=== PATIENT | female | born 1970 | race Hispanic/Latino ===

== ENCOUNTER 2017-07-19 12:06 | Emergency (ER) | payer OTHER ==
[2017-07-19 12:11] VITALS: RESP 18
[2017-07-19] MEDS ORDERED: Lidocaine 2% Inj (20ml) INFIL STA (12:38)
[2017-07-19] MEDS ORDERED: Lidocaine 2% Inj (20ml) ONE (12:38)
[2017-07-19 14:38] VITALS: BP 149/83; PULSE 84; TEMP 97.9; O2SAT 99
--- NOTE | 2017-07-19 15:25 | C.PDOC ---
History Of Present Illness Olivia Arguello is a 46 y/o female who presents to the ER for evaluation of a laceration to right breast, sustained after a piece of her porcelain toilet broke. This occurred around 10:00 AM today. No numbness or tingling. Tetanus is not up to date. Time Seen by Provider: 07/19/17 12:20 Chief Complaint (Nursing): Abnormal Skin Integrity History Per: Patient History/Exam Limitations: no limitations Onset/Duration Of Symptoms: Hrs (x 2) Current Symptoms Are (Timing): Still Present Past Medical History Reviewed: Historical Data, Nursing Documentation, Vital Signs Vital Signs: Last Vital Signs Temp 97.9 F 07/19/17 14:37 Pulse 84 07/19/17 14:37 Resp 18 07/19/17 14:37 BP 149/83 07/19/17 14:37 Pulse Ox 99 07/19/17 15:32 - Medical History PMH: No Chronic Diseases Surgical History: No Surg Hx Family History: States: Unknown Family Hx - Social History Hx Alcohol Use: No Hx Substance Use: No - Immunization History Hx Tetanus Toxoid Vaccination: No Hx Influenza Vaccination: No Hx Pneumococcal Vaccination: No Review Of Systems Except As Marked, All Systems Reviewed And Found Negative. Skin: Positive for: Lesions (Lac to right breast) Neurological: Negative for: Weakness, Numbness (and tingling) Physical Exam - Physical Exam Appears: Non-toxic, No Acute Distress Skin: Normal Color, Warm, Dry Head: Atraumatic, Normacephalic Eye(s): bilateral: Normal Inspection, PERRL, EOMI Oral Mucosa: Moist Neck: Normal ROM, Supple Chest: Other (Right breast w/ laceration from 12 oclock position to the areolar area, approximately 6 cm. Not involving the nipple. Not actively bleeding.) Cardiovascular: Rhythm Regular, No Murmur Respiratory: Normal Breath Sounds, No Accessory Muscle Use Extremity: Normal ROM, No Deformity Pulses: Left Radial: Normal, Right Radial: Normal Neurological/Psych: Oriented x3, Normal Speech, Normal Motor, Normal Sensation ED Course And Treatment O2 Sat by Pulse Oximetry: 99 (RA) Pulse Ox Interpretation: Normal Laceration - Laceration Repair Laceration, Right Breast Wound Length (In cm): 6 cm Description Of Wound: Linear Wound Cleansed With: Sterile Saline Anesthesia: Lidocaine 2% Wound Examination: Irrigated With Saline Wound Closure: Skin Glue (Dermabond), Suture (absorbable, subcutaneous) Suture Technique And Material Used: Running Wound Complexity: Simple Medical Decision Making Medical Decision Making: Plan: Tetanus vaccine given. Laceration repaired without difficulty. Pt is to follow up in 2 days for wound check with PMD. Advised that sutures are absorbable. Given rx for cephalexin. Disposition Counseled Patient/Family Regarding: Diagnosis, Need For Followup - Disposition Referrals: [facility], [Non-Staff] - Disposition: HOME/ ROUTINE Disposition Time: 14:05 Condition: IMPROVED Additional Instructions: Thank you for letting us take care of you today. If you were prescribed any medication, please fill it and take as directed. It may take several days for your symptoms to resolve. Return to the Emergency Department if your symptoms worsen, do not improve, or if you have any other problems. Please contact your doctor or call one of the physicians/clinics you have been referred to that are listed on the Patient Visit Information form that is included in your discharge packet. Bring any paperwork you were given at discharge with you along with any medications you are taking to your follow up visit. Our treatment cannot replace ongoing medical care by a primary care provider (PCP) outside of the emergency department. Thank you for allowing the [facility] team to be part of your care today. Follow up with your doctor in 2 days for re-evaluation and wound check. Prescriptions: Cephalexin [cephalexin] 500 mg PO Q8 #15 cap Instructions: Care For Your Absorbable Stitches (ED) Forms: [employer] (Romanian) - Clinical Impression Clinical Impression: Laceration - Scribe Statement The provider has reviewed the documentation as recorded by the Scribe (Keisha Sun) Provider Attestation: All medical record entries made by the Scribe were at my direction and personally dictated by me. I have reviewed the chart and agree that the record accurately reflects my personal performance of the history, physical exam, medical decision making, and the department course for this patient. I have also personally directed, reviewed, and agree with the discharge instructions and disposition.
== END 2017-07-19 14:37 | disposition home or self-care (01) ==
LOC: C.ER 12:06
DX: S21.011A Laceration without foreign body of right breast, initial encounter (principal); W45.8XXA Other foreign body or object entering through skin, initial encounter